=== PATIENT | female | born 1960 | race African-American/Black ===

== ENCOUNTER 2019-03-18 05:55 | Day surgery (SDC) | payer OTHER ==
[2019-03-17 16:27] VITALS: BMI 25.8
[2019-03-18] MEDS ORDERED: MIDAZOLAM HCL 2 MG/2 ML SINGLE DOSE VIAL ONE ×2 (10:43)
[2019-03-18] MEDS ORDERED: ROPIVACAINE HCL 0.5% 30ML VIAL ONE (10:45)
[2019-03-18] MEDS ORDERED: KETAMINE HCL 200 MG/20 ML VIAL ONE (10:55)
[2019-03-18] MEDS ORDERED: PROPOFOL 20 ML ONE ×2 (10:55→15:07)
[2019-03-18] MEDS ORDERED: MAGNESIUM SULF 50% (8.12 MEQ/2 ML-1 GM VIAL) ONE (10:59)
[2019-03-18] MEDS ORDERED: LIDOCAINE HCL/PF 2% SDV 5ML VIAL ONE (11:03)
[2019-03-18] MEDS ORDERED: KETOROLAC TROMETHAMINE 30 MG/1 ML VIAL ONE (11:03)
[2019-03-18] MEDS ORDERED: ceFAZolin SODIUM 1 GM VIAL ONE ×2 (11:03→20:09)
[2019-03-18] MEDS ORDERED: DEXAMETHASONE SOD PHOSPHATE 4 MG/1 ML VIAL ONE (11:03)
[2019-03-18] MEDS ORDERED: SODIUM CHLORIDE 0.9% P/F 10 ML VIAL IJ ONE (11:03)
[2019-03-18] MEDS ORDERED: HEPARIN NA (PORCINE) 5,000 UNITS/ML 1ML VIAL ONE ×2 (11:53→12:01)
[2019-03-18] MEDS ORDERED: DEXMEDETOMIDINE HCL 200 MCG/2 ML IVPB ONE (11:53)
[2019-03-18] MEDS ORDERED: CEFAZOLIN 2 GM in DEXTROSE 5%-WATER - 100 ML IVPB ONE (12:03)
[2019-03-18] MEDS ORDERED: ceFAZolin SODIUM 1 GM VIAL IVPB ONE (12:18)
[2019-03-18] MEDS ORDERED: ROCURONIUM BROMIDE 50 MG/5 ML SYRINGE ONE (12:33)
[2019-03-18] MEDS ORDERED: EPHEDRINE SULFATE/0.9% NACL/PF 50 MG/10 ML SYRINGE NR ONE (13:38)
[2019-03-18] MEDS ORDERED: NEOSTIGMINE METHYLSULFATE 0.5 MG/ML - 10 ML MDV ONE ×2 (13:52→15:22)
[2019-03-18] MEDS ORDERED: GLYCOPYRROLATE 0.2 MG/1 ML VIAL ONE (13:54)
--- NOTE | 2019-03-18 15:15 | OP ---
Operative Note - Note: Operative Date: 03/18/19 Pre-Operative Diagnosis: Large, growing, symptomatic leiomyomata. Pelvic pain. Operation: Robotic total hysterectomy. BSO. Lysis of adhesions. Morcellation (surgical, transvaginal, "no spill"). Cystoscopy. Post-Operative Diagnosis: Same as Pre-op (Extensive adhesions and scar tissue.) Surgeon: Ward Pedraza Wide Area Network Systems Administrator: Alicia Tate Anesthesia: General Specimens Removed: Uterus and both adnexa. Estimated Blood Loss (mls): 25
[2019-03-18] MEDS ORDERED: ACETAMINOPHEN 1000 MG/100 ML VIAL (NON FORMULARY) IVPB ONE (15:35)
--- NOTE | 2019-03-18 15:51 | SURG ---
Surgery Lead Ruby On Rails Developer Note Lead Ruby On Rails Developer: Alicia Tate PA-C Date of Service: 03/18/19 Diagnosis: Large, growing, symptomatic leiomyomata. Pelvic pain. Procedure: Robotic total hysterectomy. BSO. Lysis of adhesions. Cystoscopy. I was present for the entirety of the operative procedure. For further detail, please refer to operative report. Visit type - Case Type Case Type: Scheduled - Emergency Emergency Visit: No - New patient This patient is new to me today: Yes Date on this admission: 03/18/19
[2019-03-18] MEDS ORDERED: ACETAMINOPHEN INJECTION 100 ML IVPB ONE (16:58)
[2019-03-18] MEDS ORDERED: ONDANSETRON 4 MG/2 ML VIAL IVPUSH PRN (17:22)
[2019-03-18] MEDS: oxyCODONE HCL 5 MG TABLET PO PRN (18:19)
[2019-03-18] MEDS: LACTATED RINGERS SOLUTION 1,000 ML IV SCH ×2 (18:30→21:35)
[2019-03-18] MEDS ORDERED: ACETAMINOPHEN 1000 MG/100 ML VIAL (NON FORMULARY) IVPB PRN (18:38)
--- NOTE | 2019-03-18 19:20 | PN ---
Progress Note (short form) - Note Progress Note: Pt seen at 18:30 for postop. Stable and happy. Procedure explained.
[2019-03-18] MEDS ORDERED: DEXTROSE 5%-WATER - 50 ML IVPB ONE (20:10)
[2019-03-18] MEDS: CEFAZOLIN 1 GM in DEXTROSE 5%-WATER - 50 ML IVPB SCH (20:14)
[2019-03-18] MEDS: IBUPROFEN 800 MG/8 ML IJ IVPB SCH (21:28)
[2019-03-18] MEDS ORDERED: HEPARIN NA (PORCINE) 5,000 UNITS/ML 1ML VIAL SQ ONE (22:00)
[2019-03-19] MEDS: ACETAMINOPHEN 500 MG TABLET (FP) PO SCH ×4 (02:03→11:51)
--- NOTE | 2019-03-19 02:38 | OP ---
DATE OF OPERATION: 03/18/2019 PREOPERATIVE DIAGNOSES: 1. Large, growing, symptomatic uterine leiomyomata. 2. Pelvic pain. POSTOPERATIVE DIAGNOSES: 1. Large, growing, symptomatic uterine leiomyomata. 2. Pelvic pain. 3. Extensive scar tissue and adhesions. OPERATION: 1. Robotic total hysterectomy and bilateral salpingooophorectomy. 2. Lysis of extensive adhesions and division of scar tissue. 3. Morcellation of the specimen. 4. Cystoscopy. SURGEON: Анна Vieira M.D. SAMPLER OVENS: Srinivas Finn ANESTHESIOLOGIST: Tor Purvis M.D. ANESTHESIA: General. PROCEDURE: Under general anesthesia, patient was examined. Vagina was noted to be stenotic and tight. Cervix was small. Uterus was very irregular with multiple myomas and seemed to be adhered to the anterior abdominal wall. Uterus was about 16 weeks' size. Vulvovaginal prep was carried out. Massey catheter was placed in the bladder. Small-sized VCare device was inserted into the uterus. Abdomen was prepped and draped for the da Sharon hysterectomy. First incision was placed about 8 cm above the umbilicus in the vertical fashion. Veress needle was inserted into the abdomen, and abdomen was insufflated with carbon dioxide. Da Sharon trocar was introduced. Robotic laparoscope was inserted and pelvis was visualized. Uterus was large with multiple myomas in various locations. Omentum was adhered in several areas to the uterus. Uterus itself was adherent with thick adhesions to the anterior abdominal wall. Both adnexa were relatively free and within normal limits. Cul-de-sac was free. The remainder of the abdomen were within normal limits. Two additional 8-mm ports were placed on the left and right side of the abdomen at the level of umbilicus. Additional 5-mm port was placed for the Enseal device. Fenestrated bipolar device was placed in arm number 1. Vessel sealer extend was placed in arm number 3, on the other side, and during the dissection alternated with monopolar scissors. Next, the da Sharon robot was then placed at the side of the patient and docked. Dissection was started by carefully releasing omentum from multiple areas of attachment to the uterus. This required vessel sealer and frequent coagulation. Some of the adhesions were vascular. Omentum was not bleeding, was allowed to drop cephalad since patient was in Trendelenburg position. Fenestrated bipolar device was placed in arm number 1 and in arm number 3, extended vessel sealer was placed and alternated throughout the case with monopolar scissors. Enseal was connected and activated. Omental adhesions were then identified. Omentum was dissected off the uterus using mostly vessel sealer and allowed to drop back cephalad. This patient was in Trendelenburg position. There was no omental bleeding. With the uterus free of omentum, dissection was carried out on the left side. Left round ligament was identified and divided laterally. Posterior leaf of the broad ligament was opened and extended alongside infundibulopelvic ligament. Ureter was partially identified. Infundibular ligament was developed, isolated, coagulated with bipolar cautery and divided. Dissection could be carried inferiorly. Anterior thick adhesions were then addressed. Using vessel sealer and later bipolar coagulation and monopolar scissors, they were carefully and painstakingly cut until uterine anterior surface was relatively free. In the process, omental adhesions to the peritoneum were also noted and divided using vessel sealer. A right-sided dissection was then carried out using lateral dissection of right round ligament , opening of the broad ligament, isolation and desiccation with division of infundibulopelvic ligament on the right side. On the right side, paravesical space was dissected end compared to the left side. Cervix was identified, cleared and bladder was partially dissected off the cervix. Uterine vessels were identified, desiccated and divided. Extension was carried then toward the midline with cervix almost completely freed and bladder below the ridge of the VCare device. Dissection was then returned to the left side where anatomical interrelations were much easier to identify. Left anterior leaf of broad ligament was divided, uterine vessels were skeletonized, desiccated, and divided. With the bladder actually off the cervix, remains of the scar tissue between anterior uterine lower segment and abdominal wall were much easier to delineate. It was divided by desiccation and sharp dissection, and uterus was free. Using monopolar scissors, fully visualized vaginal fornices were sharply entered. Incision was carried 360 degrees and uterus was freed. It became apparent that it would not be removed as a single piece. Morcellation was approached transvaginally. It was accomplished with several pieces of the specimen but in an entirely spill free fashion. Cervix was amputated. Uterus was rotated and wedge-like specimens were removed from the body of the uterus. Multiple myomectomies were performed. In the process, both adnexa were removed. Every piece of the specimen was removed from the abdomen, and there was no spill in the abdominal cavity. Transvaginal morcellation was thus accomplished. Pelvis was inspected. Hemostasis was excellent. Robotically, vaginal vault was closed with continuous running V-Loc 2-0 sutures with securing of vaginal angles and preserving suspension using uterosacral ligament stumps. Pelvis was lavaged and fluid was suctioned. Hemostasis was carefully observed and was excellent again. At that point, all robotic and laparoscopic part of the surgery ended. Robot was undocked, and all trocars were removed under direct vision. Incision was secured with interrupted 3-0 Biosyn sutures and tissue glue. Massey catheter was removed. Bladder was filled with 200 mL of saline and using 5-mm scope with 30-degree angle, cystoscopy was carried out. Bladder dome was found to be intact. Trigone was within normal limits. Both tubal ostia were identified and noted ejecting jets of clear urine. Ureters were seen in their most distal parts under the bladder mucosa and they were functioning normally. At that point, this part of the procedure was also completed, and fresh Massey catheter was inserted in the bladder. Total blood loss was 25 mL. In spite of extremely complex anatomical conditions , procedure went uneventfully with a minimal blood loss and without complications. There were no problems from anesthesia as well. At that point, patient was awakened and transferred to PACU comfortable and stable. АННА VIEIRA MD JR/[id number] MTDD
[2019-03-19] MEDS ORDERED: LEVOTHYROXINE NA 25 MCG TABLET (FP) ONE (05:24)
[2019-03-19] MEDS ORDERED: LEVOTHYROXINE NA 112 MCG TABLET (FP) ONE (05:24)
[2019-03-19] MEDS ORDERED: ceFAZolin SODIUM 1 GM VIAL ONE (05:25)
[2019-03-19] MEDS ORDERED: DEXTROSE 5%-WATER - 50 ML IVPB ONE (05:25)
[2019-03-19] MEDS: CEFAZOLIN 1 GM in DEXTROSE 5%-WATER - 50 ML IVPB SCH (05:37)
[2019-03-19] MEDS: IBUPROFEN 800 MG/8 ML IJ IVPB SCH (06:09)
[2019-03-19] MEDS ORDERED: LEVOTHYROXINE 112 MCG, LEVOTHYROXINE 25 MCG PO SCH (07:00)
[2019-03-19] MEDS ORDERED: BENZOCAINE/MENTH/CETYLPYRD CL 1 EACH LOZENGE MM PRN (07:51)
[2019-03-19] MEDS ORDERED: POLYETHYLENE GLYCOL 3350 119 GM BTL PO ONE (08:00)
[2019-03-19 08:17] LABS: BASO % 0.3 % (0-2.0); HEMATOCRIT 30.6 % (32.4-45.2); LYMPH % 27.4 % (8-40); MCH 23.3 pg (25.7-33.7); MCHC 32.9 g/dl (32.0-36.0); MEAN CELL VOLUME 70.7 fl (80-96); NEUT % 64.3 % (42.8-82.8); PLATELET COUNT 176 K/MM3 (134-434); RBC 4.32 M/mm3 (3.60-5.2); RDW 15.8 % (11.6-15.6); WHITE BLOOD COUNT 8.2 K/mm3 (4.0-10.0)
[2019-03-19 08:49] LABS: BLOOD UREA NITROGEN 10.5 mg/dL (7-18); CALCIUM 8.7 mg/dL (8.5-10.1); CREATININE 0.9 mg/dL (0.55-1.3); POTASSIUM 3.9 mmol/L (3.5-5.1)
--- NOTE | 2019-03-19 09:01 | PN ---
Progress Note (short form) - Note Progress Note: Anesthesia postop note 59 y/o F s/p GA for Robotic hysterectomy POD#1, vss, aaox3, pain well controlled, no complaints. No anesthesia complications.
[2019-03-19] MEDS ORDERED: RIVAROXABAN 10 MG TABLET PO SCH ×2 (09:15→18:30)
--- NOTE | 2019-03-19 09:28 | PN ---
Progress Note (short form) - Note Progress Note: Doing very well. Dressings clean. Starting Xorelto. Discharge today.
[2019-03-19] MEDS ORDERED: PATIENT'S OWN MEDICATION (NON-FORMULARY) (Levothyroxine Sodium [Synthroid] 137 MCG) PO SCH (10:00)
[2019-03-19 11:48] VITALS: BP 105/62; PULSE 73; TEMP 98.7
--- NOTE | 2019-03-19 12:16 | PN ---
Progress Note (short form) - Note Progress Note: POD 1, s/p Robotic total hysterectomy. BSO. Lysis of adhesions. Cystoscopy. Pt seen and examined. Reports she did well overnight, Pain controlled with current regimen. Tolerating clears, voiding without issue. Was ambulating the halls yesterday. Denies cp/sob, n/v/d. Vital Signs Temp 98.7 F 03/19/19 08:20 Pulse 73 03/19/19 08:20 Resp 20 03/19/19 08:20 BP 105/62 03/19/19 08:20 Pulse Ox 100 03/18/19 18:00 Intake & Output 03/18/19 03/19/19 03/19/19 23:59 11:59 23:59 Intake Total 2000 Output Total 900 Balance 1100 Intake: IV 2000 Output: Urine 850 Estimated Blood Loss 50 Other: Voiding Method Toilet Weight Measurement Method Standing Scale CBC, BMP 03/19/19 07:25 03/19/19 07:25 Gen: awake, alert, nad Resp: Unlabored on RA Abdo: soft, + ttp in pelvic region appropriate to status. Dressings c/d/i. + bowel sounds A/P: 59 y/o F w/ PMHx Jehova's Witness, h/o PE, hypothyroidism, leiomyomas, now POD 1, s/p Robotic total hysterectomy. BSO. Lysis of adhesions. Cystoscopy. Afebrile, vss Pain controlled Labs stable -Plan for d/c today All d/c instructions including Xarelto Rx reviewed with pt at length, pt verbalized understanding d/w attending Dr Pedraza
[2019-03-19] MEDS: oxyCODONE HCL 5 MG TABLET PO PRN (13:20)
--- NOTE | 2019-03-24 16:21 | PATH ---
Surgical Pathology Report Patient Name: ALINA LOPEZ [facility]. Rec. #: [id number] /Age/Gender: 1960 (Age: 59) / F Account: [id number] Location: AMBULATORY SURG Taken: 03/18/2019 Received: 03/19/2019 Reported: 03/24/2019 Physicians: Ward Pedraza MD Specimen(s) Received UTERUS, CERVIX, BILATERAL FALLOPIAN TUBES, OVARIES, MYOMAS Clinical History Large leiomyoma of uterus, pelvic pain Final Diagnosis UTERUS, CERVIX, BILATERAL FALLOPIAN TUBES, OVARIES, MYOMAS, ROBOTIC LAPAROSCOPIC HYSTERECTOMY AND BILATERAL SALPINGO-OOPHORECTOMY: 295 G, UTERUS. LEIOMYOMA(TA) WITH FOCAL DEGENERATIVE CHANGES AND DYSTROPHIC CALCIFICATIONS. ATROPHIC ENDOMETRIUM. ENDOMETRIAL POLYP. CERVIX WITHOUT SIGNIFICANT PATHOLOGIC FINDINGS. BILATERAL OVARIES WITHOUT SIGNIFICANT PATHOLOGIC FINDINGS BILATERAL FALLOPIAN TUBES WITHOUT SIGNIFICANT PATHOLOGIC FINDINGS. Electronically Signed Amber Meeks M.D. Gross Description Received in formalin labeled "uterus, cervix, bilateral fallopian tubes, ovaries, myomas," is a 295 g, 15.5 x 13.0 x 3.5 cm aggregate of a markedly morcellated uterus and fibroids. There is a 5 cm in length x 2.3 cm in diameter unoriented cervix identified. The ectocervix is taveras, smooth and glistening. The endocervix is unremarkable. There is possible endometrium identified which is brown and averages 0.1 cm in thickness. There are abundant myomas present, measuring up to 4.0 cm in greatest dimension. The cut surface of the myomas is taveras and rubbery with whorled architecture. One of the myomas is calcified. No areas of hemorrhage or necrosis are identified. The undesignated fallopian tubes are separately received within the same container. Arbitrarily designated fallopian tube "1" is fimbriated and measures 3.5 cm in length. The outer surfaces are taveras and smooth. Sectioning reveals an unremarkable lumen. Arbitrarily designated fallopian tube "2" measures 2.5 cm in length. There are no fimbria are identified. The outer surface is taveras-brown and smooth. Sectioning reveals an unremarkable lumen. Arbitrarily designated ovary "1" measures 3.1 x 1.6 x 1.0 cm. The outer surface is taveras-yellow and smooth. Sectioning reveals unremarkable ovarian parenchyma. Arbitrarily designated ovary "2" measures 2.4 x 1.8 x 1.0 cm. The outer surface is taveras-yellow and smooth. Sectioning reveals unremarkable ovarian parenchyma. Sales Associate Key Holder sections are submitted in 15 cassettes as follows: 9-4-[id number] endometrium; 4-5-cervix; 6-calcified fibroid, following decalcification; 3-30-bsvzbkiyyc fibroids; 11-arbitrarily designated fallopian tube "1" fimbria; 12-cross sections of arbitrarily designated fallopian tube "1"; 13-cross sections of arbitrarily designated fallopian tube "2"; 14-arbitrarily designated ovary "1"; 15-arbitrarily designated ovary "2". 03/20/2019 [facility]03/20/2019
== END 2019-03-19 15:18 | disposition home or self-care (01) ==
LOC: JASUSAT 05:55 → EDSTATUS 11:00 → J8W 18:03 → JASUSAT 03-19 15:18
PROVIDERS: ATTEND Specialist
PROC: 0UT24ZZ Resection of Bilateral Ovaries, Percutaneous Endoscopic Approach (ICD-10-PCS; 2019-03-18)
PROC: 0UT74ZZ Resection of Bilateral Fallopian Tubes, Percutaneous Endoscopic Approach (ICD-10-PCS; 2019-03-18)
PROC: 8E0W8CZ Robotic Assisted Procedure of Trunk Region, Via Natural or Artificial Opening Endoscopic (ICD-10-PCS; 2019-03-18)
PROC: 0UT94ZZ Resection of Uterus, Percutaneous Endoscopic Approach (ICD-10-PCS; principal; 2019-03-18 11:00)
DX: D25.9 Leiomyoma of uterus, unspecified (principal); N84.0 Polyp of corpus uteri; N73.6 Female pelvic peritoneal adhesions (postinfective)
CPT/HCPCS: 58573; S2900; 36415; 80048; 85025; 88307-TC; 88311-TC; 94760; J0131; J1644